=== PATIENT | female | born 1925 | race Caucasian/White ===

== ENCOUNTER 2017-01-16 12:23 | Outpatient (CLI) | payer MEDICARE, OTHER | END 2017-01-16 12:24 | disposition home or self-care (01) | DX: R06.09 Other forms of dyspnea (principal); R53.83 Other fatigue ==

== ENCOUNTER 2017-01-19 14:44 | Outpatient (CLI) | payer MEDICARE, OTHER | END 2017-01-19 14:45 | disposition home or self-care (01) | DX: D64.9 Anemia, unspecified (principal) ==

== ENCOUNTER 2017-02-17 10:11 | Outpatient (CLI) | payer MEDICARE, OTHER | END 2017-02-17 10:12 | disposition home or self-care (01) | DX: D64.9 Anemia, unspecified (principal) ==